=== PATIENT | female | born 1990 | race Two or more races ===

== ENCOUNTER 2025-02-11 05:12 | Day surgery (SDC) | payer OTHER ==
[2025-02-06 10:21] VITALS: BP 132/84
[2025-02-06 10:33] LABS: PROTHROMBIN TIME 10.9 SECONDS (9.0-11.5)
[2025-02-06 11:23] LABS: RH POSITIVE
[~2025-02-11] VITALS: Ht 154.9 cm; Wt 79.4 kg
[2025-02-11] MEDS ORDERED: POVIDONE-IODINE 118 ML BOTT TOP ONE (06:59)
[2025-02-11] MEDS ORDERED: KETOROLAC TROMETHAMINE 30 MG VIAL IV STA (08:29)
[2025-02-11] MEDS ORDERED: RINGERS SOLUTION,LACTATED 1,000 ML IV SCH (08:30)
[2025-02-11] MEDS ORDERED: KETOROLAC TROMETHAMINE 30 MG VIAL ONE (10:16)
== END 2025-02-11 11:15 | disposition home or self-care (01) ==
LOC: CIR.AMB 05:12
PROVIDERS: ATTEND Student in an Organized Health Care Education/Training Program
DX: N84.1 Polyp of cervix uteri (principal); N93.8 Other specified abnormal uterine and vaginal bleeding

== ENCOUNTER 2025-02-20 07:45 | Inpatient (IN) | payer OTHER ==
[~2025-02-20] VITALS: Ht 154.9 cm; Wt 83.9 kg
[2025-02-20 09:10] VITALS: BP 125/76
[2025-02-20 09:11] LABS: URINE APPEARANCE Clear; URINE BILIRRUBIN Negative (NEGATIVE); URINE BLOOD Moderate; URINE COLOR Yellow; URINE GLUCOSE Negative (NEGATIVE); URINE KETONE Negative (NEGATIVE); URINE LEUKOCYTE Negative; URINE NITRATE Negative; URINE PROTEIN Negative (NEGATIVE); URINE UROBILINOGEN 0.2 E.U./dl
[2025-02-20 09:14] VITALS: BP 111/78
[2025-02-20 09:14] LABS: BASO % 0.6 % (0.1-1.2); EOS # 0.18 (0.04-0.54); EOS % 1.9 % (0.7-7.0); HEMATOCRIT 41.6 % (34.1-44.9); HEMOGLOBIN 13.6 g/dL (11.2-15.7); LYMPH # 2.41 (1.18-3.74); MEAN CORPUSCULAR HEMOGLOBIN 28.1 pg (25.6-32.2); MONO # 0.62 (0.24-0.82); MONO % 6.4 % (4.7-12.5); NEUT # 6.36 (1.56-6.13); NEUT % 65.9 % (34.0-71.1); PLATELET COUNT 401 K/uL (163-369); RED BLOOD COUNT 4.84 M/uL (3.93-5.22); RED CELL DISTRIBUTION WIDTH 12.4 % (11.6-14.4)
[2025-02-20 09:15] LABS: URINE BACTERIA 1122.3 uL (0.0-1933); URINE EPITHELIAL CELLS 51.8 uL (0.0-38.8); URINE RBC 176.3 uL (0.0-20.8); URINE WBC 7.1 uL (0.0-23.2)
[2025-02-20 09:46] LABS: ALBUMIN 3.7 gm/dL (3.4-5.0); BILIRUBIN TOTAL 0.51 mg/dL (0.3-1.2); CALCIUM 8.7 mg/dL (8.5-10.1); CREATININE SERUM 0.69 mg/dL (0.55-1.02); GFR 97.98; POTASSIUM 3.93 mEq/L (3.5-5.1); TOTAL PROTEIN 7.7 gm/dL (6.4-8.2)
[2025-02-20 10:03] LABS: PARTIAL THROMBOPLASTIN TIME 31.5 SECONDS (22.0-34.0); PROTHROMBIN TIME 10.9 SECONDS (9.0-11.5)
[2025-02-20 10:06] LABS: RH POSITIVE
[2025-02-27] MEDS ORDERED: METRONIDAZOLE/SODIUM CHLORIDE 500 MG/100 ML PIGGYBACK IV ONE (07:21)
[2025-02-27] MEDS ORDERED: CEFAZOLIN SODIUM 1,000 MG VIAL ONE (07:22)
[2025-02-27] MEDS ORDERED: CHLORHEXIDINE GLUCONATE 120 ML BOTTLE TOP ONE (09:45)
[2025-02-27] MEDS ORDERED: POVIDONE-IODINE 118 ML BOTT TOP ONE (09:45)
[2025-02-27] MEDS ORDERED: SUGAMMADEX SODIUM 200 MG/2 ML VIAL IV ONE (12:53)
[2025-02-27] MEDS ORDERED: MORPHINE SULFATE 4 MG/ML VIAL IV ONE (13:20)
[2025-02-27] MEDS ORDERED: RINGERS SOLUTION,LACTATED 1,000 ML IV SCH (14:00)
[2025-02-27] MEDS ORDERED: GABAPENTIN 300 MG CAPSULE PO SCH (17:00)
[2025-02-27 17:37] VITALS: BP 125/76
[2025-02-27] MEDS ORDERED: KETOROLAC TROMETHAMINE 30 MG VIAL IV SCH (18:00)
[2025-02-27] MEDS ORDERED: ACETAMINOPHEN 500 MG GEL..CAP PO SCH (18:00)
[2025-02-28 00:56] VITALS: BP 90/60
[2025-02-28 05:00] VITALS: BP 100/66
[2025-02-28 08:57] VITALS: BP 102/73
[2025-02-28 09:56] LABS: BASO % 0.3 % (0.1-1.2); EOS # 0.12 (0.04-0.54); HEMATOCRIT 36.9 % (34.1-44.9); HEMOGLOBIN 12.2 g/dL (11.2-15.7); LYMPH # 2.52 (1.18-3.74); LYMPH % 21.6 % (19.3-53.1); MEAN CORPUSCULAR HEMOGLOBIN 27.8 pg (25.6-32.2); MONO # 0.89 (0.24-0.82); MONO % 7.6 % (4.7-12.5); NEUT # 8.08 (1.56-6.13); NEUT % 69.2 % (34.0-71.1); PLATELET COUNT 380 K/uL (163-369); RED BLOOD COUNT 4.39 M/uL (3.93-5.22); RED CELL DISTRIBUTION WIDTH 12.6 % (11.6-14.4)
== END 2025-02-28 12:34 | disposition home or self-care (01) | DRG 743 ==
LOC: O/R 02-27 05:29 → SURH 02-27 07:45 → OB/GYN 02-27 13:47
PROVIDERS: ADMIT Student in an Organized Health Care Education/Training Program; ATTEND Student in an Organized Health Care Education/Training Program
PROC: 0UT74ZZ Resection of Bilateral Fallopian Tubes, Percutaneous Endoscopic Approach (ICD-10-PCS; 2025-02-27)
PROC: 0UDB8ZZ Extraction of Endometrium, Via Natural or Artificial Opening Endoscopic (ICD-10-PCS; 2025-02-27)
PROC: 0UPD4HZ Removal of Contraceptive Device from Uterus and Cervix, Percutaneous Endoscopic Approach (ICD-10-PCS; 2025-02-27)
PROC: 8E0W4CZ Robotic Assisted Procedure of Trunk Region, Percutaneous Endoscopic Approach (ICD-10-PCS; 2025-02-27)
PROC: 0TJB8ZZ Inspection of Bladder, Via Natural or Artificial Opening Endoscopic (ICD-10-PCS; 2025-02-27)
PROC: 0UT94ZZ Resection of Uterus, Percutaneous Endoscopic Approach (ICD-10-PCS; principal; 2025-02-27 12:15)
DX: D25.9 Leiomyoma of uterus, unspecified (principal); N94.6 Dysmenorrhea, unspecified; Z30.432 Encounter for removal of intrauterine contraceptive device; Z90.710 Acquired absence of both cervix and uterus; N93.9 Abnormal uterine and vaginal bleeding, unspecified
CPT/HCPCS: 58573; 58562; 52000; S2900